=== PATIENT | female | born 1985 | race Caucasian/White ===

== ENCOUNTER 2017-08-22 07:41 | Outpatient (CLI) | payer OTHER ==
[~2017-08-22 07:41] MED LIST: PEPCID40 MG PO; PHENERGAN25 MG PO; PRENATAL TABLE1 EAC1
== END 2017-08-22 10:04 | disposition home or self-care (01) ==
LOC: NST 07:41
DX: Z34.03 Encounter for supervision of normal first pregnancy, third trimester (principal); Z3A.37 37 weeks gestation of pregnancy

== ENCOUNTER 2017-09-04 21:29 | Inpatient (IN) | payer OTHER ==
[~2017-09-04] VITALS: Ht 170.2 cm; Wt 99.8 kg
[2017-09-04] MEDS ORDERED: FOLIC ACID1 MG PO (22:25)
== END 2017-09-07 14:34 | DRG 775 ==
LOC: LDR 21:29 → OB/GYN 21:29
PROC: 10E0XZZ Delivery of Products of Conception, External Approach (ICD-10-PCS; principal; 2017-09-04)
PROC: 0KQM0ZZ Repair Perineum Muscle, Open Approach (ICD-10-PCS; 2017-09-04)
PROC: 0UQMXZZ Repair Vulva, External Approach (ICD-10-PCS; 2017-09-04)
PROC: 4A1HXCZ Monitoring of Products of Conception, Cardiac Rate, External Approach (ICD-10-PCS; 2017-09-04)
PROC: 10907ZC Drainage of Amniotic Fluid, Therapeutic from Products of Conception, Via Natural or Artificial Opening (ICD-10-PCS; 2017-09-04)
PROC: 4A033R1 Measurement of Arterial Saturation, Peripheral, Percutaneous Approach (ICD-10-PCS; 2017-09-04)
DX: O70.1 Second degree perineal laceration during delivery (principal); Z37.0 Single live birth; Z3A.39 39 weeks gestation of pregnancy

== ENCOUNTER 2018-09-20 17:52 | Emergency (ER) | payer OTHER ==
[~2018-09-20] VITALS: Ht 170.2 cm; Wt 88.0 kg
[~2018-09-20 17:52] MED LIST changes: +FOLIC ACID1 MG PO
== END 2018-09-20 20:44 | disposition home or self-care (01) ==
LOC: ER 17:52
DX: O26.851 Spotting complicating pregnancy, first trimester (principal); O43.891 Other placental disorders, first trimester; Z34.81 Encounter for supervision of other normal pregnancy, first trimester

== ENCOUNTER → 2019-01-28 | Outpatient (CLI) | payer OTHER | END | disposition home or self-care (01) | LOC: PRENATAL 08:13 | DX: O09.522 Supervision of elderly multigravida, second trimester (principal); O44.02 Complete placenta previa NOS or without hemorrhage, second trimester ==

== ENCOUNTER 2019-03-18 13:00 | Inpatient (IN) | payer OTHER ==
[~2019-03-18] VITALS: Ht 170.2 cm; Wt 99.3 kg
[2019-04-17] MEDS ORDERED: Dermoplast SPRAY TOP (15:54)
[2019-04-17] MEDS ORDERED: OXYC1TAB9 PO (15:54)
[2019-04-17] MEDS ORDERED: ACETAMINOPHEN325 M1 PO (15:54)
[2019-04-17] MEDS ORDERED: HYDROCORTISO453.6 G1 RECTAL (15:54)
== END 2019-04-17 16:03 | disposition home or self-care (01) | DRG 798 ==
LOC: O/R 13:00 → OB/GYN 04-15 05:32 → LDR 04-15 05:32 → OB/GYN 04-15 17:41
PROVIDERS: ADMIT Specialist
PROC: 10E0XZZ Delivery of Products of Conception, External Approach (ICD-10-PCS; principal; 2019-04-15)
PROC: 0HQ9XZZ Repair Perineum Skin, External Approach (ICD-10-PCS; 2019-04-15)
PROC: 10907ZC Drainage of Amniotic Fluid, Therapeutic from Products of Conception, Via Natural or Artificial Opening (ICD-10-PCS; 2019-04-15)
PROC: 3E033VJ Introduction of Other Hormone into Peripheral Vein, Percutaneous Approach (ICD-10-PCS; 2019-04-15)
PROC: 4A1HXCZ Monitoring of Products of Conception, Cardiac Rate, External Approach (ICD-10-PCS; 2019-04-15)
PROC: 0UL70ZZ Occlusion of Bilateral Fallopian Tubes, Open Approach (ICD-10-PCS; 2019-04-16)
DX: O70.0 First degree perineal laceration during delivery (principal); Z37.0 Single live birth; Z3A.39 39 weeks gestation of pregnancy; Z30.2 Encounter for sterilization; Z22.330 Carrier of Group B streptococcus

== ENCOUNTER → 2019-03-24 16:47 | Outpatient (CLI) | payer OTHER | END | disposition left against medical advice (07) | LOC: OBS/DEL 16:47 | DX: O46.8X3 Other antepartum hemorrhage, third trimester (principal); Z34.83 Encounter for supervision of other normal pregnancy, third trimester ==

== ENCOUNTER 2023-10-21 05:03 | Day surgery (SDC) | payer OTHER ==
[2023-10-16 09:26] LABS: HEMATOCRIT 39.7 % (36.0-45.00); HEMOGLOBIN 13.6 g/dL (12.0-15.00); MEAN CELL VOLUME 86.5 fL (80.00-100.00); MEAN CORPUSCULAR HEMOGLOBIN 29.6 pg (27.00-32.0); MEAN CORPUSCULAR HGB CONC 34.2 g/dl (32.0-36.0); PLATELET COUNT 257 K/uL (150-450); RED BLOOD COUNT 4.59 M/uL (4.00-6.00); RED CELL DISTRIBUTION WIDTH 13.2 % (11.5-14.5)
[2023-10-16 09:34] LABS: PH,URINE 7.5 (5.0-8.0); URINE APPEARANCE Clear; URINE BILIRRUBIN Negative (NEGATIVE); URINE BLOOD Large; URINE COLOR Yellow; URINE GLUCOSE Negative (NEGATIVE); URINE LEUKOCYTE Trace; URINE NITRATE Negative; URINE PROTEIN Negative (NEGATIVE); URINE UROBILINOGEN 0.2 E.U./dl
[2023-10-16 09:39] LABS: URINE BACTERIA 182.6 uL (0.0-1933); URINE RBC 735.2 uL (0.0-20.8); URINE WBC 16.6 uL (0.0-23.2)
[2023-10-16 09:52] LABS: INR 1.04; PARTIAL THROMBOPLASTIN TIME 34.5 SECONDS (22.0-34.0); PROTHROMBIN TIME 10.9 SECONDS (9.0-11.5)
[2023-10-16 09:57] LABS: ALBUMIN 4.1 gm/dL (3.4-5.0); BILIRUBIN TOTAL 0.51 mg/dL (0.3-1.2); CALCIUM 9.4 mg/dL (8.5-10.1); CREATININE SERUM 0.67 mg/dL (0.55-1.02); GFR 97.99; GLOBULINA 3.4 G/DL (2.4-3.5); POTASSIUM 3.96 mEq/L (3.5-5.1); TOTAL PROTEIN 7.5 gm/dL (6.4-8.2)
[~2023-10-21 05:03] MED LIST changes: +ACETAMINOPHEN325 M1 PO; +Dermoplast SPRAY TOP; +HYDROCORTISO453.6 G1 RECTAL; +OXYC1TAB9 PO
[2023-10-21] MEDS ORDERED: CEFAZOLIN SODIUM 1,000 MG VIAL ONE ×2 (07:06→11:17)
[2023-10-21] MEDS ORDERED: BUPIVACAINE HCL/PF 0.5% 30ML ML ONE (08:20)
[2023-10-21] MEDS ORDERED: BUPIVACAINE 0.75% IJ SCH (08:45)
[2023-10-21] MEDS ORDERED: CEFAZOLIN SODIUM 1,000 MG VIAL IV SCH ×2 (08:45→10:30)
[2023-10-21] MEDS ORDERED: RINGERS SOLUTION,LACTATED 1,000 ML IV SCH (10:30)
[2023-10-21] MEDS ORDERED: FAMOTIDINE/PF 20 MG/10 ML SYRINGE IV SCH (10:30)
[2023-10-21] MEDS ORDERED: FAMOTIDINE/PF 20 MG/2 ML VIAL ONE (11:18)
== END 2023-10-21 13:40 | disposition home or self-care (01) ==
LOC: CIR.AMB 05:03
PROVIDERS: ATTEND Specialist
DX: K80.10 Calculus of gallbladder with chronic cholecystitis without obstruction (principal); K42.9 Umbilical hernia without obstruction or gangrene; Z20.822 Contact with and (suspected) exposure to COVID-19

== ENCOUNTER 2023-11-08 08:25 | Emergency (ER) | payer OTHER ==
[~2023-11-08] VITALS: Ht 170.2 cm; Wt 85.7 kg
[2023-11-08] MEDS ORDERED: AZITHROMYCIN250 MG PO (08:41)
[2023-11-08] MEDS ORDERED: NASAL MIST126 ML NASAL (08:42)
[2023-11-08] MEDS ORDERED: TUSSIN DM LIQU118 ML PO (08:42)
[2023-11-08] MEDS ORDERED: KETOROLAC TROMETHAMINE 60 MG VIAL IM ONE (10:30)
[2023-11-08] MEDS ORDERED: GUAIFENESIN/DEXTROMETHORPHAN 100 MG/5 ML ML PO ONE (10:30)
== END 2023-11-08 12:49 ==
LOC: ER 08:25
DX: A49.3 Mycoplasma infection, unspecified site (principal); R05.8 Other specified cough

== ENCOUNTER 2023-12-06 08:25 | Emergency (ER) | payer OTHER ==
[~2023-12-06] VITALS: Ht 170.2 cm; Wt 85.3 kg
[~2023-12-06 08:25] MED LIST changes: +AZITHROMYCIN250 MG PO; +NASAL MIST126 ML NASAL; +TUSSIN DM LIQU118 ML PO
[2023-12-06] MEDS ORDERED: 0.9 % SODIUM CHLORIDE 1,000 ML IV ONE (09:00)
[2023-12-06] MEDS ORDERED: HYOSCYAMINE SULFATE 0.125 MG TAB.SUBL SL ONE (09:00)
[2023-12-06] MEDS ORDERED: ONDANSETRON HCL 2 MG/ML VIAL IV ONE (09:00)
[2023-12-06] MEDS ORDERED: FAMOTIDINE/PF 20 MG/2 ML VIAL IV PUSH ONE (09:00)
[2023-12-06 09:37] LABS: HEMATOCRIT 38.7 % (36.0-45.00); HEMOGLOBIN 13.2 g/dL (12.0-15.00); MEAN CELL VOLUME 86.7 fL (80.00-100.00); MEAN CORPUSCULAR HEMOGLOBIN 29.5 pg (27.00-32.0); PLATELET COUNT 237 K/uL (150-450); RED BLOOD COUNT 4.47 M/uL (4.00-6.00); RED CELL DISTRIBUTION WIDTH 13.7 % (11.5-14.5)
[2023-12-06 10:34] LABS: ALBUMIN 3.5 gm/dL (3.4-5.0); BILIRUBIN TOTAL 0.81 mg/dL (0.3-1.2); CALCIUM 8.7 mg/dL (8.5-10.1); CREATININE SERUM 0.82 mg/dL (0.55-1.02); GFR 77.61; GLOBULINA 3.9 G/DL (2.4-3.5); POTASSIUM 3.87 mEq/L (3.5-5.1); TOTAL PROTEIN 7.4 gm/dL (6.4-8.2)
== END 2023-12-06 11:51 | disposition home or self-care (01) ==
LOC: ER 08:25
PROVIDERS: General Practice
DX: K52.89 Other specified noninfective gastroenteritis and colitis (principal); R11.10 Vomiting, unspecified
CPT/HCPCS: 36415; 96365; 99282; J2405; J3490; J7030